=== PATIENT | female | born 1940 | race Caucasian/White ===

== ENCOUNTER 2018-05-30 09:04 | Outpatient (CLI) | payer MEDICARE, BC ==
--- NOTE | 2018-05-30 13:06 | MRI ---
MRI CERVICAL SPINE: INDICATIONS: Neck pain. Ataxia. TECHNIQUE: Multiplanar, multisequential imaging of the cervical spine obtained. FINDINGS: The cervical vertebrae maintain normal height and alignment. Mild degenerative changes are noted. M ild osteophytes are seen from the cervical vertebrae. Mild loss of disk space at C6-C7. The other d isk spaces are relatively well preserved. Mild posterior spondylosis seen at C2-C3, C3-C4, and C4-C5. Findings at these levels efface the ante rior subarachnoid space. There is no evidence of cord impingement at any of these levels. Foraminal narrowing is noted at C3-C4, due to facet and uncinate hypertrophy, more severe on the left. At C5-C6, minimal spondylosis. No central canal or foraminal stenosis. At C6-C7, disk bulge and spondylitic change efface the anterior subarachnoid space. These changes ab ut the anterior cord. There is right foraminal stenosis secondary to facet and uncinate hypertrophy. At C7-T1, no significant abnormality. Cord signal appears normally maintained. IMPRESSION: 1. Disk bulge and spondylosis, most pronounced at C6-C7, as described above. 2. Mild spondylitic changes at C2-C3, C3-C4, and C4-C5, as noted above. 3. Incidentally noted, on T2 sagittal images, is increased signal in the region of the shana. This i s inadequately assessed on this examination and could be further evaluated with MRI, if clinically in dicated. POS: [facility]
--- NOTE | 2018-05-30 13:52 | MRI ---
MRI BRAIN WITH AND WITHOUT IV CONTRAST: HISTORY: Ataxia. Breast cancer. Balance problems. Fell weeks ago. FINDINGS: There is ventricular and sulcal prominence due to cortical atrophy. There are foci of T2 prolongatio n in the periventricular white matter, consistent with chronic small vessel ischemic disease. No res tricted diffusion is seen. No evidence of infarct, hemorrhage, mass, midline shift, or abnormal extr aaxial fluid collections is seen. No abnormal post contrast enhancement is noted. The ventricular s ize is appropriate, and the basilar cisterns are patent. The visualized paranasal sinuses and mastoi d air cells are well aerated. There is minimal fluid in the right mastoid air cells. IMPRESSION: Chronic changes. No evidence of acute intracranial process or mass/metastatic disease. POS: [facility]
== END 2018-05-30 09:05 | disposition home or self-care (01) ==
LOC: SCSMRI 09:04
PROVIDERS: ATTEND Psychiatry & Neurology Neurology
DX: R27.0 Ataxia, unspecified (principal); M47.812 Spondylosis without myelopathy or radiculopathy, cervical region
CPT/HCPCS: 70553; 72141; 82565